=== PATIENT | male | born 1995 | race Caucasian/White ===

== ENCOUNTER 2018-12-02 16:21 | Emergency (ER) | payer BC ==
[~2018-12-02] VITALS: Ht 170.2 cm; Wt 65.8 kg
[2018-12-02] MEDS ORDERED: ZANAFLEX2 M1 PO (18:22)
[2018-12-02] MEDS ORDERED: TRAMADOL 50 MG50 MG PO (18:22)
[2018-12-02] MEDS ORDERED: LIDOCAINE PAIN1 EACH TOP (18:22)
[2018-12-02 18:42] VITALS: BP 116/72
== END 2018-12-02 18:43 | disposition home or self-care (01) ==
LOC: ER 16:21
DX: M54.6 Pain in thoracic spine (principal); M62.830 Muscle spasm of back